=== PATIENT | female | born 1985 | race Caucasian/White ===

== ENCOUNTER 2021-06-02 20:59 | Emergency (ER) | payer OTHER ==
[~2021-06-02 20:59] MED LIST: CYCLOBENZAPRINE10 MG PO; IBUPROFEN800 MG PO; MEDROL 4MG DOSEP4 MG PO
== END 2021-06-02 22:35 | disposition home or self-care (01) ==
LOC: FER 20:59
DX: R41.82 Altered mental status, unspecified (principal); F17.210 Nicotine dependence, cigarettes, uncomplicated; Z88.2 Allergy status to sulfonamides; Z88.8 Allergy status to other drugs, medicaments and biological substances
CPT/HCPCS: 99284

== ENCOUNTER 2021-07-20 17:03 | Emergency (ER) | payer OTHER ==
[2021-07-20 17:57] LABS: BASOPHIL 0.5 % (0-2); EOSINOPHIL 0.9 % (0-5); HGB 13.3 g/dl (12.5-16.0); LYMPHOCYTE 19.1 % (15-48); MCH 30.7 pg (25.0-31.0); MCHC 33.3 g/dL (32.0-36.0); MCV 92.4 fL (78.0-100.0); MONOCYTE 6.1 % (0-12); MPV 10.3 fL (6.0-9.5); NRBC 0; PLT 246 K/uL (150-400); RBC 4.33 M/uL (4.20-5.40)
[2021-07-20 18:20] LABS: BUN/CREAT RATIO (CALC) 18.8 RATIO; CREATININE 0.69 mg/dL (0.51-0.95); POTASSIUM 3.2 mmol/L (3.5-5.1)
== END 2021-07-20 19:08 | disposition home or self-care (01) ==
LOC: FER 17:03
PROVIDERS: Nurse Practitioner Family
DX: R55 Syncope and collapse (principal); S13.9XXA Sprain of joints and ligaments of unspecified parts of neck, initial encounter; Z88.2 Allergy status to sulfonamides; W18.30XA Fall on same level, unspecified, initial encounter
CPT/HCPCS: 36415; 70450; 72125; 80048; 84484; 85025; 93005